=== PATIENT | male | born 1965 | race Caucasian/White ===

== ENCOUNTER → 2016-06-04 | Outpatient (CLI) | payer BC ==
[~2016-06-04] MED LIST: CEPH500C PO; TRAM-10 PO
== END ==
LOC: C.RDSM 14:45
PROVIDERS: ATTEND Physical Medicine & Rehabilitation Sports Medicine
DX: M25.521 Pain in right elbow (principal)

== ENCOUNTER → 2016-08-10 | Outpatient (CLI) | payer BC | END | disposition home or self-care (01) | LOC: C.RDSM 10:02 | PROVIDERS: ATTEND Physical Medicine & Rehabilitation Sports Medicine | DX: M25.511 Pain in right shoulder (principal) ==

== ENCOUNTER → 2016-08-16 | Outpatient (CLI) | payer BC ==
--- NOTE | 2016-08-16 18:52 | DIAGNOSTIC IMAGING REPORT ---
[facility] RADIOGRAP[facility] 3 VIEWS HISTORY: pre-MRI screening. COMPARISON: None. FINDINGS: There are no radiopaque foreign bodies identified within the orbits. IMPRESSION: No radiopaque foreign bodies identified within the orbits. Electronically signed by: Everton Beckett M.D. 08/16/2016 6:50 PM Dictated Date/Time: 08/16/2016 6:50 PM
--- NOTE | 2016-08-17 11:45 | DIAGNOSTIC IMAGING REPORT ---
RIGHT SHOULDER MRI HISTORY: Right shoulder pain. TECHNIQUE: Multiplanar multisequence MRI of the right shoulder was performed without contrast. COMPARISON STUDY: Right shoulder 08/10/2016. FINDINGS: AC joint: Intact. Rotator cuff: Small partial bursal surface tears at the distal infraspinatus and supraspinatus tendons. No evidence for full-thickness tear. Trace fluid within the subacromial/subdeltoid bursa. Slight increased signal within the distal subscapularis tendon consistent with a mild tendinopathy. The infraspinatus tendon is intact. Labrum: The anterior inferior labrum is not well visualized. Otherwise, no definite evidence for a labral tear. Biceps: Mild increased signal within the proximal long head of the biceps tendon consistent with a mild tendinopathy. Bones: No fracture or dislocation. Cartilage: Intact Miscellaneous: No significant joint effusion. IMPRESSION: 1. Small partial bursal surface tears involving the infraspinatus and supraspinatus tendons. No evidence for full-thickness rotator cuff tear. 2. Mild subscapularis tendinopathy. 3. Mild tendinopathy involving the proximal long head of the biceps tendon. Electronically signed by: Everton Beckett M.D. 08/17/2016 11:44 AM Dictated Date/Time: 08/16/2016 10:06 PM
== END | disposition home or self-care (01) ==
LOC: C.RAD 18:13
PROVIDERS: ATTEND Physical Medicine & Rehabilitation Sports Medicine
DX: M75.101 Unspecified rotator cuff tear or rupture of right shoulder, not specified as traumatic (principal)

== ENCOUNTER → 2017-06-13 | Day surgery (SDC) | payer BC ==
[2017-05-06 07:35] VITALS: BMI 22.0
[2017-06-06 12:03] VITALS: Ht 182.9 cm; Wt 75.0 kg
[~2017-06-13] VITALS: Ht 182.9 cm; Wt 75.0 kg
[~2017-06-13] MED LIST changes: +ATROPINE SULFATE 0.1 MG/ML 5ML SYR IV PRN; +BUPIVACAINE 0.5 % 5 MG/1 ML MPF 30ML VIAL ONE; +CEFAZOLIN 1000MG IV PUSH 5 ML IV SCH; -CEPH500C PO; +EpHEDrine SULFATE INJ 50 MG/ML AMP IV PRN; +EpINEphrine INJ 1MG/ML AMP 1 MG/ML AMP ONE; +FENTANYL CITRATE INJ 50 MCG/1 ML 2 ML VIAL IV PRN; +FENTANYL CITRATE INJ 50 MCG/1 ML 2 ML VIAL ONE; +HYDR-5688 PO; +LACTATED RINGER'S 1000ML 1,000 ML IV SCH; +LIDOCAINE HCL 2% 2 ML VIAL (20MG/ML) ONE; +LIDOCAINE/EPINEPHRINE 1% 20 ML VIAL ONE; +MIDAZOLAM HCL 1 MG/ML 2ML VIAL ONE; +MoRPHine SULFATE 2 MG/ML CARP IV PRN; +MoRPHine SULFATE 4 MG/ML 1 ML CARP\\VIAL IV PRN; +ONDANSETRON INJ 2 MG/ML 2 ML VIAL IV PRN; +OXYCODONE/ACETAMINOPHEN 5-325 TAB PO PRN; +PROPOFOL IV EMULSION 10 MG/ML 20 ML VIAL IV ONE; +SODIUM CHLORIDE 0.9% 1000ML 1,000 ML IV SCH; +TOPI25TA55 PO; -TRAM-10 PO
--- NOTE | 2017-06-13 09:44 | History & Physical Bridge Note ---
H&P Re-Evaluation Bridge Note: I have examined the patient, reviewed the History & Physical and in the interval since the performance of the History & Physical I have noted the following changes of clinical significance: No changes noted
--- NOTE | 2017-06-13 10:46 | Discharge Instructions-SurgCtr ---
Discharge Instructions Date of Service Jun 13, 2017. Visit Reason for Visit: Right Elbow Lateral Epicondylitis Discharge Discharge Diagnosis / Problem: right elbow lateral epicondylitis Discharge Goals Goal(s): Decrease discomfort, Improve function, Increase independence Activity Recommendations Activity Limitations: per Instructions/Follow-up section Weightbearing Status: Right non-weightbearing (right elbow) Anesthesia . Post Anesthesia Instructions: If you have had General Anesthesia or IV Sedation: * Do not drive today. * Resume driving when surgeon permits. * Do not make important decisions or sign legal documents today. * Call surgeon for: 1. Temperature elevations greater than 101 degrees F. 2. Uncontrollable pain. 3. Excessive bleeding. 4. Persistent nausea and vomiting. 5. Medication intolerance (nausea, vomiting or rash). * For nausea and vomiting use only clear liquids such as: tea, soda, bouillon until nausea subsides, then gradually increase diet as tolerated. * If you have any concerns or questions, call your surgeon's office. If physician is unavailable and it is an emergency, call 911 or go to the nearest emergency room. . Instructions / Follow-Up Instructions / Follow-Up DIET: * Resume previous diet. MEDICATIONS: * Please take your prescriptions as instructed at your pre-op appointment and/ or see medication discharge instructions listed above. * If concerns develop, call your physician's office at . SPECIAL CARE INSTRUCTIONS: * Ice to right elbow as needed for pain and swelling. He may apply for 15-20 minutes 2-3 times per day. * Elevate right upper extremity above your heart to prevent swelling and help with pain. * Keep dressing clean, dry, intact. Sling right arm for comfort. Her dressings will be removed and changed at your postoperative appointment. * It is okay for you to do range of motion of your right elbow, shoulder, wrist, and fingers as tolerated. * No heavy pushing, pulling, or lifting with your right arm. * You may use her right arm for light daily activities. * Your surgical extremity may be discolored due to prepping agents used on the skin. A bluish-green tint is a normal variant and should not cause alarm. Call your doctor at [phone] if: * Temperature above 101 degrees * Pain not relieved by pain medicine ordered * There is increased drainage or redness from any incision * You have any unanswered questions, problems or concerns. FOLLOW UP VISIT: * If not already scheduled, please call the office at to schedule a follow-up appointment. * You have a follow-up appointment scheduled with Dr. Titi Garcia on at 2:00 P.M. * You have a physical therapy appointment on 06/17/17 at 11:00 A.M. Diet Recommendations Home Diet: no limitations, resume previous diet Pending Studies Studies pending at discharge: no Medical Emergencies . Who to Call and When: Medical Emergencies: If at any time you feel your situation is an emergency, please call 911 immediately. . Non-Emergent Contact Non-Emergency issues call your: Surgeon Call Non-Emergent contact if: temperature is above 101, your pain is not controlled, your pain is worsening, your pain is unusual for you, wound has increased drainage, wound has increased redness, wound has increased pain, you have any medication questions . . "Provider Documentation" section prepared by Niru Spann. . [place] Drug Monitoring Program Search Results: patient reviewed within database, no issues identified
--- NOTE | 2017-06-13 11:15 | [facility] Post Operative Brief Note ---
Immediate Operative Summary Operative Date Jun 13, 2017. Pre-Operative Diagnosis Right elbow lateral epicondylitis Post-Operative Diagnosis Same as pre-op Procedure(s) Performed Right Elbow lateral epicondylitis Tendon Debridement Surgeon Chemical Dependency Counselor Surgeon(s) Dr. Valdez Estimated Blood Loss Zero Findings tendonosis Specimens A.Right tennis elbow Anesthesia local wirh IV sedation Complication(s) None Disposition Recovery Room / PACU
[2017-06-13 11:28] VITALS: TEMP 36.3
--- NOTE | 2017-06-13 11:44 | Anesthesia Progress Nt - [facility] ---
Anesthesia Post Op Note Date & Time Jun 13, 2017 at 11:43 Vital Signs Pain Intensity: 0 Vital Signs Past 12 Hours Date Time Temp Pulse Resp B/P (MAP) Pulse Ox O2 Delivery O2 Flow Rate FiO2 06/13/17 11:28 36.3 59 16 113/67 (82) 99 Room Air 06/13/17 08:12 36.9 69 22 136/79 (98) 98 Room Air Notes Mental Status: alert / awake / arousable, participated in evaluation Pt Amnestic to Procedure: Yes Nausea / Vomiting: adequately controlled Pain: adequately controlled Airway Patency, RR, SpO2: stable & adequate BP & HR: stable & adequate Hydration State: stable & adequate Anesthetic Complications: no major complications apparent
[2017-06-13 12:02] VITALS: BP 131/81; PULSE 58; O2SAT 100
--- NOTE | 2017-06-13 12:10 | OPERATIVE REPORT ---
DATE OF OPERATION: 06/13/2017 PREOPERATIVE DIAGNOSIS: Right elbow lateral epicondylitis. POSTOPERATIVE DIAGNOSIS: Same. PROCEDURE: Right elbow extensor tendon debridement. SURGEON: Dr. Garcia. TOOL DESIGN ENGINEER: Riki Rhodes, fellow. SECOND TOOL DESIGN ENGINEER: Cherie Shay, student. ANESTHESIA: Local with IV sedation. INDICATIONS OF PROCEDURE: The patient is a 52-year-old male with signs and symptoms of right elbow lateral epicondylitis refractory to nonsurgical methods of management including injections. Treatment options, risks and benefits were discussed and he elected to proceed with operative intervention. OPERATION AND FINDINGS: PROCEDURE IN DETAIL: Informed consent was obtained. The patient was identified as Lexa Hollingsworth. He identified the operative site as the right elbow. I marked it with my initials. A preop surgical time out was performed and a preop dose of IV antibiotics was given. He was taken to the operating room where he was positioned supine on the OR table with the right arm on a hand table. Examination under anesthesia revealed no lateral or medial collateral ligament laxity. He had full range of motion and full forearm rotation. A tourniquet was applied to the right upper arm. The limb was prepped and draped in the usual sterile fashion. DVT prophylaxis will be done with early patient mobility. The lateral epicondyle area was injected with approximately 8 mL of 1% lidocaine and 0.5% Marcaine containing epinephrine. The limb was exsanguinated with the Esmarch, tourniquet inflated to 225 mmHg after routine prep and drape. A 5 cm lateral incision was made just anterior to the lateral epicondyle and centered over it. The skin was sharply incised followed by blunt dissection down to subcutaneous tissues to the level of the extensor musculature. The posterior margin of the extensor carpi radialis longus tendon was identified and a longitudinal division was made just posterior to this margin. The ECRL was then elevated up off of the underlying extensor carpi radialis brevis tendon. The ECRB tendon showed the typical dull gates fish fleshy type appearance. An apex proximal triangle of tissue from the anterior portion of the epicondyle down to the radiocapitellar joint was excised in a full thickness fashion. The radiocapitellar joint appeared normal. The epicondyle was debrided with a rongeur. The scratch test was utilized to debride tissue posteriorly that was tendinotic. I did further excise the more posterior tissue taking care to stay on the anterior one-third of the lateral epicondyle. This was debrided back to absence of tendinotic tissue and more normal silvery striated fibers. There was a fairly significant mass of this tissue present extending posteriorly. There may have been a small portion left which I did not want to debride as I did not want to risk injuring the lateral ulnar collateral ligament. There may have been a very small amount of tendinosis tissue remaining posteriorly. I did not want to debride this much further as I did not want to injure the lateral ulnar collateral ligament. The wound was irrigated with sterile saline and then the split in the musculature was closed with running #1 Vicryl, the skin was closed with 3-0 Vicryl and a 4-0 Monocryl subcuticular stitch. The arm was cleaned with wet and dry sponges. The tourniquet was let down after approximately 35 minutes of inflation. He was placed into a simple arm sling with a soft dressing of Xeroform, 4 x 4's, and an Juan wrap. The patient was awakened from anesthesia without difficulty and taken to the recovery room in stable condition. The resected tissue was sent for specimen. It had the typical dull gates fish fleshy appearance. There were no complications. Counts were correct at the end of case. Blood loss was minimal. At the conclusion of the operation, I spoke to patient's family and informed them of my findings, spoke to his and informed her of my findings. Detailed postoperative instructions were given. He can do early active range of motion and will be rehabilitated according to the lateral epicondylitis surgical plan. I attest to the content of the Intraoperative Record and any orders documented therein. Any exception s are noted below.
== END | disposition home or self-care (01) ==
LOC: X.SURG 07:34
PROVIDERS: ATTEND Physical Medicine & Rehabilitation Sports Medicine
DX: M77.11 Lateral epicondylitis, right elbow (principal); R00.2 Palpitations; Z79.899 Other long term (current) drug therapy; M19.90 Unspecified osteoarthritis, unspecified site